=== PATIENT | male | born 1965 | race Caucasian/White ===

== ENCOUNTER 2016-11-05 04:03 | Inpatient (IN) | payer BC ==
[~2016-11-05] VITALS: Ht 172.7 cm; Wt 78.8 kg
[~2016-11-05 04:03] MED LIST: AMLODIPINE BESY10 MG PO; B-121000 MC2 PO; CALCIUM CARBON260 MG PO; CALCIUM CARBON650 MG PO; CALCIUM PO; CYANOCOBALAM1000 MC1 PO; CYANOCOBALAM1000 MCG PO; FLUOCINONIDE-E60 GM TP; MAG-OXIDE400 MG PO; MAGNESIUM OXID400 MG PO; MULTIVITAMIN1 EAC1 PO; MULTIVITAMIN1 EAC2 PO; PERCOCET 5/31 TABLET PO; POTASSIUM GLUCO2 MEQ PO; PRILOSEC20 MG PO; PROPRANOLOL HCL60 M1 PO; Proventil,Ventolin H IH; SYNALAR 0.025%60 GM TP; THIAMINE HCL100 MG PO; XANAX0.5 MG PO
[2016-11-05 04:49] LABS: HEMATOCRIT 46.1 % (38.0-50.0); MCH 32.3 PG (29.0-34.0); MCHC 37.3 G/DL (30.0-36.0); MCV 86.5 FL (86-99); RBC DIS.WIDTH-CV 11.9 % (11.8-14.6); RBC DIS.WIDTH-SD 37.3 % (39-53); RED BLOOD COUNT 5.33 M/uL (4.00-5.50)
[2016-11-05 04:51] LABS: PLATELET COUNT 240 K/uL (156-360); WHITE BLOOD COUNT 10.5 K/uL (4.1-10.2)
[2016-11-05 05:02] LABS: CHLORIDE 101 mEq/L (99-109); POTASSIUM 4.1 mEq/L (3.7-5.4); SODIUM 137 mEq/L (136-147)
[2016-11-05 05:04] LABS: GLUCOSE 149 mg/dL (70-99)
[2016-11-05 05:06] LABS: ANION GAP 17 MEQ/L (2-14); TOTAL BILIRUBIN 0.8 mg/dL (0.0-1.0)
[2016-11-05 05:08] LABS: ALKALINE PHOSPHATASE 71 IU/L (3-129); GFR ESTIMATE (CALCULATED) > 59 mL/min/
[2016-11-05 05:09] LABS: UREA NITROGEN (BUN) 11 mg/dL (9-23)
[2016-11-05 05:11] LABS: LIPASE 46 U/L (1.0-51.0)
[2016-11-05] MEDS ORDERED: BISOPROLOL FUMAR5 MG PO (06:35)
[2016-11-05] MEDS ORDERED: LISINOPRIL40 MG PO (06:35)
[2016-11-05] MEDS ORDERED: SLOW-MAG,MAG DE64 MG PO ×2 (06:36→14:48)
[2016-11-05] MEDS ORDERED: CYMBALTA30 MG PO (06:36)
[2016-11-05] MEDS ORDERED: B-12 COMPL1000 MCG/1 IM (06:37)
[2016-11-05 08:19] LABS: ADD MIUA? NO; BILIRUBIN NEGATIVE; BLOOD NEGATIVE; COLOR YELLOW ((YELLOW)); GLUCOSE (STRIP) NEGATIVE; KETONES 5; LEUKOCYTES NEGATIVE; NITRITE NEGATIVE; PROTEIN (STRIP) 30; SPECIFIC GRAVITY 1.043 (1.000-1.030); UCUL ADDED? NO; UROBILINOGEN 0.2 MG/DL (0.2-1.0)
[2016-11-05 12:23] VITALS: BP 164/85
[2016-11-05] MEDS ORDERED: K-DUR20 MEQ PO (14:48)
[2016-11-05 19:48] VITALS: BP 133/62
[2016-11-05 21:55] VITALS: BP 130/75
[2016-11-05 23:36] VITALS: BP 124/73
[2016-11-06 04:32] VITALS: BP 130/71
[2016-11-06 05:46] LABS: HEMATOCRIT 38.7 % (38.0-50.0); MCH 32.1 PG (29.0-34.0); MCHC 34.9 G/DL (30.0-36.0); MEAN PLAT.VOLUME 9.7 uM^3 (9.0-12.4); PLATELET COUNT 187 K/uL (156-360); RBC DIS.WIDTH-CV 12.6 % (11.8-14.6); RBC DIS.WIDTH-SD 42.5 % (39-53)
[2016-11-06 05:49] LABS: MCV 92.1 FL (86-99); WHITE BLOOD COUNT 4.9 K/uL (4.1-10.2)
[2016-11-06 05:57] LABS: CHLORIDE 109 mEq/L (99-109); POTASSIUM 3.8 mEq/L (3.7-5.4)
[2016-11-06 05:58] LABS: SODIUM 143 mEq/L (136-147)
[2016-11-06 05:59] LABS: GLUCOSE 142 mg/dL (70-99)
[2016-11-06 06:01] LABS: ANION GAP 11 MEQ/L (2-14)
[2016-11-06 06:03] LABS: GFR ESTIMATE (CALCULATED) > 59 mL/min/
[2016-11-06 06:04] LABS: UREA NITROGEN (BUN) 19 mg/dL (9-23)
[2016-11-06 09:29] VITALS: BP 119/72
[2016-11-06 11:19] VITALS: BP 123/78
[2016-11-06 16:54] VITALS: BP 126/77
[2016-11-06 20:15] VITALS: BP 129/73
[2016-11-07 00:20] VITALS: BP 129/73
[2016-11-07 03:58] VITALS: BP 132/75
[2016-11-07 05:12] LABS: CHLORIDE 106 mEq/L (99-109); POTASSIUM 3.6 mEq/L (3.7-5.4); SODIUM 142 mEq/L (136-147)
[2016-11-07 05:16] LABS: ANION GAP 9 MEQ/L (2-14)
[2016-11-07 05:17] LABS: GLUCOSE 100 mg/dL (70-99); TOTAL BILIRUBIN 1.6 mg/dL (0.0-1.0)
[2016-11-07 05:31] LABS: ALKALINE PHOSPHATASE 32 IU/L (3-129); MAGNESIUM 0.9 mg/dL (1.3-2.7)
[2016-11-07 05:32] LABS: GFR ESTIMATE (CALCULATED) > 59 mL/min/; UREA NITROGEN (BUN) 22 mg/dL (9-23)
[2016-11-07 05:51] LABS: ABS NEUTROPHIL COUNT 3.6; ANISOCYTOSIS 1+; EOSINOPHIL ABS CT 0; HEMATOCRIT 30.5 % (38.0-50.0); MACROCYTES 1+; MCH 32.1 PG (29.0-34.0); MCHC 34.4 G/DL (30.0-36.0); MCV 93.3 FL (86-99); MEAN PLAT.VOLUME 9.6 uM^3 (9.0-12.4); NUCLEATED RBC'S 0.9; PLAT.SUFFICIENCY ADEQUATE; PLATELET COUNT 131 K/uL (156-360); RBC DIS.WIDTH-CV 12.5 % (11.8-14.6); RBC DIS.WIDTH-SD 43.1 % (39-53); RED BLOOD COUNT 3.27 M/uL (4.00-5.50); SEG.NEUTROPHILS 80.2 % (46.0-76.0)
[2016-11-07 08:03] VITALS: BP 119/72
[2016-11-07 11:49] VITALS: BP 163/95
[2016-11-07 16:34] VITALS: BP 133/81
[2016-11-07 19:26] VITALS: BP 150/82
[2016-11-08] VITALS (7 sets, daily range): BP systolic 130–159; BP diastolic 73–83
[2016-11-08 06:50] LABS: ANION GAP 11 MEQ/L (2-14); CHLORIDE 105 MEQ/L (99-109); GFR ESTIMATE (CALCULATED) > 59 mL/min/; GLUCOSE 87 mg/dL (70-99); HEMATOCRIT 29.2 % (38.0-50.0); MAGNESIUM 1.6 mg/dl (1.3-2.7); MCH 32.5 PG (29.0-34.0); MCHC 34.6 G/DL (30.0-36.0); MCV 93.9 FL (86-99); PLATELET COUNT 139 K/uL (156-360); POTASSIUM 3.5 MEQ/L (3.7-5.4); RBC DIS.WIDTH-SD 41.3 % (39-53); RED BLOOD COUNT 3.11 M/uL (4.00-5.50); SAMPLE HEMOLYSIS CHECK 0; SAMPLE ICTERIC CHECK 0; SAMPLE LIPEMIA CHECK 0; SODIUM 145 MEQ/L (136-147); UREA NITROGEN (BUN) 12 mg/dL (9-23)
[2016-11-08 07:07] LABS: WHITE BLOOD COUNT 2.1 K/uL (4.1-10.2)
[2016-11-08 08:52] LABS: IMMATURE GRANULOCYTE (%) 3.9 % (0.0-0.7); IMMATURE GRANULOCYTE COUNT 0.1 K/uL; INSTRUMENT ABS NEUTROPHIL CT 1.2 K/uL; LYMPHOCYTE COUNT 0.5 K/uL (1.0-2.8); MONOCYTE COUNT 0.3 K/uL (0-0.8); NEUTROPHIL (%) 56.8 % (45-76); NEUTROPHIL COUNT 1.2 K/uL (1.8-6.4)
[2016-11-09] VITALS (7 sets, daily range): BP systolic 130–160; BP diastolic 75–94
[2016-11-09 09:15] LABS: HEMATOCRIT 30.3 % (38.0-50.0); MCH 32.9 PG (29.0-34.0); MCHC 35.6 G/DL (30.0-36.0); MCV 92.4 FL (86-99); MEAN PLAT.VOLUME 9.2 uM^3 (9.0-12.4); NRBC (%) 0.5 /100 WBC (0-0); PLATELET COUNT 142 K/uL (156-360); RBC DIS.WIDTH-CV 12.1 % (11.8-14.6); RBC DIS.WIDTH-SD 41.1 % (39-53); RED BLOOD COUNT 3.28 M/uL (4.00-5.50)
[2016-11-09 09:19] LABS: WHITE BLOOD COUNT 3.8 K/uL (4.1-10.2)
[2016-11-09 11:58] LABS: ANION GAP 9 MEQ/L (2-14); CHLORIDE 99 MEQ/L (99-109); GFR ESTIMATE (CALCULATED) > 59 mL/min/; GLUCOSE 94 mg/dL (70-99); POTASSIUM 3.1 MEQ/L (3.7-5.4); SAMPLE HEMOLYSIS CHECK 0; SAMPLE ICTERIC CHECK 0; SAMPLE LIPEMIA CHECK 0; SODIUM 138 MEQ/L (136-147); UREA NITROGEN (BUN) 6 mg/dL (9-23)
[2016-11-09 12:01] LABS: MAGNESIUM 1.3 mg/dl (1.3-2.7)
[2016-11-10 00:25] VITALS: BP 140/76
[2016-11-10 08:27] VITALS: BP 138/72
[2016-11-10 11:30] VITALS: BP 146/78
[2016-11-10 16:11] VITALS: BP 131/85
[2016-11-10 20:03] VITALS: BP 153/80
[2016-11-10 23:49] VITALS: BP 162/74
[2016-11-11 04:35] VITALS: BP 160/85
[2016-11-11 08:21] VITALS: BP 134/76
[2016-11-11 10:53] LABS: HEMATOCRIT 32.3 % (38.0-50.0); MCH 32.4 PG (29.0-34.0); MCHC 35.9 G/DL (30.0-36.0); MCV 90.2 FL (86-99); RBC DIS.WIDTH-CV 11.9 % (11.8-14.6); RBC DIS.WIDTH-SD 38.8 % (39-53); RED BLOOD COUNT 3.58 M/uL (4.00-5.50)
[2016-11-11 10:58] LABS: ALKALINE PHOSPHATASE 38 IU/L (3-129); ANION GAP 9 MEQ/L (2-14); CHLORIDE 99 MEQ/L (99-109); GFR ESTIMATE (CALCULATED) > 59 mL/min/; GLUCOSE 108 mg/dL (70-99); MAGNESIUM 1.4 mg/dl (1.3-2.7); SAMPLE HEMOLYSIS CHECK 0; SAMPLE ICTERIC CHECK 0; SAMPLE LIPEMIA CHECK 0; SODIUM 138 MEQ/L (136-147); TOTAL BILIRUBIN 0.8 MG/DL (0.0-1.0); UREA NITROGEN (BUN) 5 mg/dL (9-23)
[2016-11-11 11:31] LABS: ABS NEUTROPHIL COUNT 2.7; BAND NEUTROPHILS 17.4 % (0-8.0); BASOPHILS 0.9 %; EOSINOPHIL ABS CT 0; EOSINOPHILS 0.9 % (0-5.0); INSTRUMENT ABS NEUTROPHIL CT 2.2 K/uL; METAMYELOCYTES 3.7 %; MYELOCYTES 5.5 %; PLAT.SUFFICIENCY ADEQUATE; PLATELET CLUMPS PRESENT - PLATELET COUNT APPEARS ADQ.; SEG.NEUTROPHILS 50.5 % (46.0-76.0)
[2016-11-11 12:18] VITALS: BP 157/74
[2016-11-11 16:19] VITALS: BP 149/83
[2016-11-11 23:30] VITALS: BP 151/75
[2016-11-12 05:05] LABS: CHLORIDE 108 mEq/L (99-109); POTASSIUM 3.2 mEq/L (3.7-5.4); SODIUM 140 mEq/L (136-147)
[2016-11-12 05:07] LABS: GLUCOSE 120 mg/dL (70-99)
[2016-11-12 05:09] LABS: ANION GAP 9 MEQ/L (2-14)
[2016-11-12 05:11] LABS: GFR ESTIMATE (CALCULATED) > 59 mL/min/
[2016-11-12 05:12] LABS: MAGNESIUM 1.5 mg/dL (1.3-2.7); UREA NITROGEN (BUN) 4 mg/dL (9-23)
[2016-11-12 07:51] VITALS: BP 140/79
[2016-11-12] MEDS ORDERED: PERCOCET 5/31 TABLET PO (08:18)
== END 2016-11-12 10:00 | disposition home or self-care (01) | DRG 330 ==
LOC: EME → EDBD 04:03 → EME 04:03 → 3EAST 08:57 → EDOF 08:57 → 3EAST 10:43
PROVIDERS: Emergency Medicine; Surgery
DX: K56.5 Intestinal adhesions [bands] with obstruction (postinfection) (principal); K55.1 Chronic vascular disorders of intestine; E87.2 Acidosis; I10 Essential (primary) hypertension; K21.9 Gastro-esophageal reflux disease without esophagitis; Z88.0 Allergy status to penicillin
CPT/HCPCS: 74000; 74020; 74177; 80048; 80053; 81003; 83605; 83690; 83735; 84100; 85025; 85027; 88307; 94010; 94640; 94640 76; 94799; 99202; 99281; 99285; C9113; J0330; J0690; J1170; J1580; J1650; J1885; J2250; J2270; J2405; J2765; J3010; J3475; J3480; J7030; J7040; J7050; J7120; S0030